=== PATIENT | male | born 1960 | race Caucasian/White ===

== ENCOUNTER 2018-05-04 12:23 | Day surgery (SDC) | payer MEDICAID ==
[2018-05-04 12:25] VITALS: BMI 31.5
--- NOTE | 2018-05-04 12:57 | C.PDOC ---
History Of Present Illness 57 year old male who is otherwise well, presents to the ED for evaluation of flank pain (left>right). Patient was evaluated in [facility] ED earlier this month and underwent a CT scan which showed that he had a stone. Patient returned to [place] ED yesterday for complaints of pain and received IV Fluids and pain medications for his symptoms. Case was discussed with Dr. Grewal, who recommended that patient undergo stent placement. Patient presents to this ED today with complaint of 3/10 flank pain. Patient is NPO today. He denies fever, chills, nausea, and vomiting. Time Seen by Provider: 05/04/18 12:33 Chief Complaint (Nursing): Male Genitourinary History Per: Patient History/Exam Limitations: no limitations Onset/Duration Of Symptoms: Days Current Symptoms Are (Timing): Still Present Pain Scale Rating Of: 3 Quality Of Discomfort: "Pain" Associated Symptoms: denies: Fever, Chills, Nausea, Vomiting Additional History Per: Patient Past Medical History Reviewed: Historical Data, Nursing Documentation, Vital Signs Vital Signs: Last Vital Signs Temp 98.1 F 05/04/18 12:28 Pulse 84 05/04/18 12:28 Resp 20 05/04/18 12:28 BP 143/86 05/04/18 12:28 Pulse Ox 98 05/04/18 13:24 - Medical History PMH: HTN, Hypercholesterolemia, Hyperlipidemia, Kidney Stones, Chronic Kidney Disease Denies: Asthma, Bronchitis, Cardia Arrhythmia, CHF, COPD, Emphysema, Mitral Valve Prolapse, Peripheral Edema, Pneumonia, Sleep Apnea Surgical History: Appendectomy (LAP AP 09/18/16) Denies: Coronary Stent, Pacemaker - [facility] Procedures DILATION OF RIGHT URETER WITH INTRALUMINAL DEVICE, ENDO (09/18/15) DILATION OF URETHRA, ENDO (09/18/15) FLUOROSCOPY OF RIGHT KIDNEY, URETER AND BLADDER (09/18/15) REMOVAL OF DRAINAGE DEVICE FROM BLADDER, EXTERNAL APPROACH (09/29/15) Family History: States: Unknown Family Hx - Social History Hx Alcohol Use: No Hx Substance Use: No - Immunization History Hx Tetanus Toxoid Vaccination: No Hx Influenza Vaccination: No Hx Pneumococcal Vaccination: No Review Of Systems Constitutional: Negative for: Fever, Chills Gastrointestinal: Negative for: Nausea, Vomiting Musculoskeletal: Positive for: Other (flank pain ) Physical Exam - Physical Exam Appears: Non-toxic, No Acute Distress Skin: Normal Color, Warm, Dry Head: Atraumatic, Normacephalic Eye(s): bilateral: Normal Inspection Oral Mucosa: Moist Neck: Supple Chest: Symmetrical, No Deformity, No Tenderness Cardiovascular: Rhythm Regular, No Murmur Respiratory: Normal Breath Sounds, No Rales, No Rhonchi, No Wheezing Gastrointestinal/Abdominal: Soft, No Tenderness, No Guarding, No Rebound Back: CVA Tenderness (bilateral, left>right) Extremity: Normal ROM, Capillary Refill (less than 2 seconds ) Neurological/Psych: Oriented x3, Normal Speech, Normal Cognition ED Course And Treatment O2 Sat by Pulse Oximetry: 98 (on RA) Pulse Ox Interpretation: Normal Medical Decision Making Medical Decision Making: Impression: 57 year old male with flank pain, Left>Right Progress: Patient's labwork from his [facility] visit were reviewed. Will not repeat labs. Patient given IV Fluids. Will instruct to go to Same Day Surgery. Disposition Discussed With Dr.: Chester Grewal Counseled Patient/Family Regarding: Diagnosis, Need For Followup - Disposition Disposition: HOSPITALIZED Disposition Time: 12:56 Condition: GUARDED Forms: [employer] ([employer]) - POA Present On Arrival: None - Clinical Impression Clinical Impression: Obstructive uropathy - Scribe Statement The provider has reviewed the documentation as recorded by the Scribe (Oneyda Garcia) Provider Attestation: All medical record entries made by the Scribe were at my direction and personally dictated by me. I have reviewed the chart and agree that the record accurately reflects my personal performance of the history, physical exam, medical decision making, and the department course for this patient. I have also personally directed, reviewed, and agree with the discharge instructions and disposition. Decision To Admit - Pt Status Changed To: Hospital Disposition Of: SDS- Endo,OR,Cath,IR - . Bed Request Type: Same Day Surgery Admitting Physician: Chester Grewal Patient Diagnosis: Obstructive uropathy
[2018-05-04 14:20] VITALS: RESP 16
[2018-05-04] MEDS ORDERED: HYDROmorphone 0.5 mg/0.5 ml ISec IVP PRN (16:48)
[2018-05-04] MEDS ORDERED: Iohexol 240 (50 ml) ONE (16:58)
[2018-05-04] MEDS ORDERED: cefTRIAXone IV 1 gm in Dextros 50 ML IVPB ONE (16:58)
[2018-05-04] MEDS ORDERED: Midazolam 2 MG/2 ML VIAL ONE (17:03)
[2018-05-04] MEDS ORDERED: Propofol 10 mg/ml Inj (20 ML) ONE ×2 (17:05→17:22)
[2018-05-04] MEDS ORDERED: Oxycodone/Acetaminophen 5/325 mg Tab PO PRN (17:06)
--- NOTE | 2018-05-04 17:55 | RAD ---
Date of service: 05/04/2018 HISTORY: LT KIDNEY STONE COMPARISON: No prior. FINDINGS: BOWEL: Normal. No obstruction. No free air. BONES: Normal. OTHER FINDINGS: Double-J stent catheter identified on the left. Contrast identified both within the collecting system is well as extravasated contrast IMPRESSION: Satisfactory position of double-J stent catheter.
[2018-05-04 19:21] VITALS: BP 169/89; PULSE 69; TEMP 97.4; O2SAT 100
--- NOTE | 2018-05-05 12:31 | RAD ---
Date of service: 05/04/2018 PROCEDURE: Intraoperative Fluoroscopy. HISTORY: LT KIDNEY STONE FINDINGS: Fluoroscopic assistance was provided Fluoroscopy time = 34.4 seconds. Radiation dose = 1.39 mGy -cm Please refer to the operative report from LAURA Molina, , MD [facility].
--- NOTE | 2018-05-05 17:41 | HP ---
This is Dr. Grewal dictating urology emergency admission. Mr. Andres is a very pleasant 57-year-old gentleman I know quite well. He had stones before. He is pleasant, but somewhat noncompliant. He has been coming to my office, has been going to the emergency room. I have been recommending treatment, but he elected to work. Today, he is having such severe pain, so admitting him as an emergency. I am going to put a stent and see the plan listed below. He has a known stone in his left ureter. He has been diagnosed at an outside institution. Other than [facility], he was in [facility]. We discussed outpatient treatments and shockwave lithotripsy, but at this point he is having such severe pain that we cannot wait. Previously, he had been on aspirin and we are just waiting for the aspirin to "wear out of the system." In the interim, the patient is having too much pain and to the ER. For now, we will bring him in as an emergency to put a stent and see below. PAST MEDICAL AND SURGICAL HISTORY: As listed in the chart. There is no other related changes. See the admission history and physical from the emergency room doctors. REVIEW OF SYSTEMS: As above. SOCIAL HISTORY: Essentially unremarkable. He works as a delivery driver/customer service. MEDICATIONS: See chart. ALLERGIES: SEE CHART. PHYSICAL EXAMINATION: GENERAL: Well-nourished male. He is currently resting comfortably on the stretcher. What he reports is that his pain has been anywhere from 2 to 10; two hours ago was a 10. Right now, it is a little bit less. VITAL SIGNS: Within normal limits, included in the chart. LUNGS: Clear. HEART: Normal S1 and S2. ABDOMEN: Overall soft, not grossly distended. GENITOURINARY: No real CVA tenderness. Normal male phallus. No testicular masses. LABORATORY DATA: See chart. DIAGNOSES: Urolithiasis, hematuria, hydronephrosis, severe flank pain, renal colic, all in the left side. The patient has more than one stone. PLAN: As follows. Today, we are going to do a cystoscopy and insert a stent. We are not touching the stone. We are just going to drain the kidney. This has been going on for a while. Actually, we are worried about infection at this point. 1. Antibiotic prophylaxis. 2. Cystoscopy. 3. Stent insertion. Further plans will follow. ADDENDUM: See the operative note. We were able to successfully place the stent, but with great difficulty. The stone was extremely impacted. Dakota Grewal MD
--- NOTE | 2018-05-06 07:00 | OP ---
PROCEDURE DATE: 05/04/2018 This is an emergency surgical procedure. PREOPERATIVE DIAGNOSES: Urolithiasis, hematuria, hydronephrosis, severe renal colic, multiple visits to the emergency room. POSTOPERATIVE DIAGNOSES: Urolithiasis, hematuria, hydronephrosis, severe renal colic, multiple visits to the emergency room. PROCEDURES: Cystoscopy, left retrograde pyelogram, and insertion of left double-J stent. COMPLICATIONS: There were no complications. There is noted extravasation. See the report from the chart. BLOOD LOSS: Less than 10 mL. At the termination of the procedure, the patient has had successful insertion of double-J stent in the left kidney. No complications. INDICATIONS: See the history and physical for the details. This is a very pleasant gentleman, who is here for the above procedure. I discussed with the patient the risks, benefits, and treatment alternatives of the procedure. At this point, we several times. We are waiting for the expert to out of the system. At this point, the patient is admitted as an emergency. DESCRIPTION OF PROCEDURE: After explaining risks, benefits, and alternatives of the procedure, the patient was brought to the table. Routine monitor was placed. Time-out was called to confirm the patient and positioning. The cystoscope was introduced via the urethra. was performed. We see a definite stone in the left kidney and may be difficult to see one in the ureter. Although, now we did multiple retrograde studies at the point of this dictation and I could definitely find where the stone is. It is an extremely impacted stone. The cystoscope via the urethra. The ureteral orifice identified. retrograde pyelogram was performed. Then, we tried to pass the wire up to the kidney and get stuck right where the stone is. We tried gently passing the wire. It would not go all the way. At this point, we put an open-ended over the wire. We tried wire technique open-ended and just trying to twist the wire. It still would not go up easily. At this point, I gently tried injecting contrast to further outline the ureter. There is small amount of extravasation noted. At this point, then I kept the wire in place and we are going to use the ureteroscope. I just gave one more effort with the open-ended and the wire technique and it slipped right in. Once we confirmed the positioning, I then re-injected through the open-ended contrast by confirming the kidney and that we were definitely in. I put the wire back in and put a double-J stent. The patient tolerated the procedure well without complications and at the termination of the procedure, had double-J stent in good location. I do want to mention that we can see the picture that we saved and put in the chart that there is purulent material draining when the open-ended is in. So at this point, the patient tolerated the procedure well without complications. Bladder is emptied. Cystoscope removed. Double-J stent in good location . Based on today's findings, I am not going to treat him until we know that we well. Give the ureter some time to heal and also we will discuss further plans further to follow. of the impacted stone. We were able to get the double-J stent in, but there was purulent material and this has been going on for a while. I provided antibiotics for the patient and I will discuss further plans. Dakota Grewal MD
== END 2018-05-04 19:25 | disposition home or self-care (01) ==
LOC: C.ER 12:23 → C.SDS 13:29
PROVIDERS: ATTEND Urology
DX: N13.2 Hydronephrosis with renal and ureteral calculous obstruction (principal); E78.00 Pure hypercholesterolemia, unspecified; I12.9 Hypertensive chronic kidney disease with stage 1 through stage 4 chronic kidney disease, or unspecified chronic kidney disease; N18.9 Chronic kidney disease, unspecified; Z87.442 Personal history of urinary calculi
CPT/HCPCS: 52332; 74018; 99285; C1725; C1758; C1769; J0696; Q9966

== ENCOUNTER 2018-05-13 08:03 | Day surgery (SDC) | payer MEDICAID ==
[2018-05-13 08:03] VITALS: BMI 31.5
[2018-05-13] MEDS ORDERED: Sodium Chloride 0.9% 1,000 ML IV ONE (08:44)
--- NOTE | 2018-05-13 08:47 | C.PDOC ---
History Of Present Illness 57 y/o male with history of left renal stone presents to ED sent by Dr. Grewal for stent removal and for evaluation urinary frequency, urinary urgency and hematuria for 1 week. Patient denies fever, abdominal pain, nausea, vomiting or any other complaints at this time. Time Seen by Provider: 05/13/18 08:21 Chief Complaint (Nursing): Male Genitourinary History Per: Patient History/Exam Limitations: no limitations Onset/Duration Of Symptoms: Days Current Symptoms Are (Timing): Still Present Associated Symptoms: Urinary Symptoms Past Medical History Reviewed: Historical Data, Nursing Documentation, Vital Signs Vital Signs: Last Vital Signs Temp 97.7 F 05/13/18 08:06 Pulse 80 05/13/18 08:06 Resp 18 05/13/18 08:06 BP 134/91 H 05/13/18 08:06 Pulse Ox 97 05/13/18 08:53 - Medical History PMH: HTN, Hypercholesterolemia, Hyperlipidemia, Kidney Stones, Chronic Kidney Disease Surgical History: Appendectomy (LAP AP 09/18/16) - [facility] Procedures DILATION OF RIGHT URETER WITH INTRALUMINAL DEVICE, ENDO (09/18/15) DILATION OF URETHRA, ENDO (09/18/15) FLUOROSCOPY OF RIGHT KIDNEY, URETER AND BLADDER (09/18/15) REMOVAL OF DRAINAGE DEVICE FROM BLADDER, EXTERNAL APPROACH (09/29/15) Family History: States: No Known Family Hx - Social History Hx Alcohol Use: No Hx Substance Use: No - Immunization History Hx Tetanus Toxoid Vaccination: No Hx Influenza Vaccination: No Hx Pneumococcal Vaccination: No Review Of Systems Constitutional: Negative for: Fever, Chills Gastrointestinal: Negative for: Nausea, Vomiting, Abdominal Pain Genitourinary: Positive for: Frequency, Hematuria. Negative for: Dysuria Musculoskeletal: Negative for: Back Pain Skin: Negative for: Rash Physical Exam - Physical Exam Appears: Non-toxic, Other (uncomfortable) Skin: Warm, Dry, No Rash Head: Atraumatic, Normacephalic Eye(s): bilateral: Normal Inspection Oral Mucosa: Moist Neck: Supple Cardiovascular: Rhythm Regular Respiratory: Normal Breath Sounds, No Rales, No Rhonchi, No Wheezing Gastrointestinal/Abdominal: Soft, No Tenderness, No Guarding, No Rebound Back: CVA Tenderness (mild), No Paraspinal Tenderness Neurological/Psych: Oriented x3, Normal Speech, Normal Motor, Normal Sensation ED Course And Treatment O2 Sat by Pulse Oximetry: 97 (RA) Pulse Ox Interpretation: Normal Medical Decision Making Medical Decision Making: discussed with Dr Collin Grewal, at 0842, to be admitted to his service. Disposition Discussed With : Chester Grewal Doctor Will See Patient In The: Hospital - Disposition Disposition: HOSPITALIZED Disposition Time: 08:46 Condition: GOOD Forms: [facility] ([facility]) - Clinical Impression Clinical Impression: Renal colic on left side - PA / WORD PROCESSING OPERATOR / Resident Statement MD/DO has reviewed & agrees with the documentation as recorded. - Scribe Statement The provider has reviewed the documentation as recorded by the Joaquinibcollin Mena All medical record entries made by the Constanza were at my direction and personally dictated by me. I have reviewed the chart and agree that the record accurately reflects my personal performance of the history, physical exam, medical decision making, and the department course for this patient. I have also personally directed, reviewed, and agree with the discharge instructions and disposition.
[2018-05-13] MEDS ORDERED: Sodium Chloride 0.9% 1,000 ML ONE (08:52)
[2018-05-13 09:04] LABS: BASO # 0.1 K/uL (0.0-0.2); BASO % 1.2 % (0.0-2.0); EOS # 0.7 K/uL (0.0-0.7); EOS % 8.1 % (0.0-4.0); HEMOGLOBIN 14.8 g/dL (12.0-18.0); LYMPH # 2.6 K/uL (1.0-4.3); MEAN CORPUSCULAR HEMOGLOBIN 28.7 pg (27.0-31.0); MEAN CORPUSCULAR HGB CONC 34.4 g/dL (33.0-37.0); MEAN PLATELET VOLUME 8.8 fL (7.2-11.7); MONO # 0.9 K/uL (0.0-0.8); MONO % 11.5 % (0.0-10.0); NEUT # 3.9 K/uL (1.8-7.0); NEUT % 47.2 % (50.0-75.0); RBC 5.15 Mil/uL (4.40-5.90); RED CELL DISTRIBUTION WIDTH 14.1 % (11.5-14.5); WHITE BLOOD COUNT 8.2 K/uL (4.8-10.8)
[2018-05-13 09:07] LABS: MEAN CELL VOLUME 83.3 fL (80.0-94.0)
[2018-05-13 09:17] LABS: ALB/GLOB RATIO 1.3 (1.0-2.1); ALT/SGPT 33 U/L (21-72); AST/SGOT 19 U/L (17-59); BLOOD UREA NITROGEN 9 mg/dL (9-20); CALCIUM 9.2 mg/dl (8.6-10.4); GFR AFRICAN-AMERICAN > 60; GFR NON-AFRICAN AMERICAN > 60
[2018-05-13] MEDS ORDERED: Midazolam 2 MG/2 ML VIAL ONE (12:08)
[2018-05-13] MEDS ORDERED: Propofol 10 mg/ml Inj (20 ML) ONE (12:08)
[2018-05-13] MEDS ORDERED: Oxycodone/Acetaminophen 5/325 mg Tab PO PRN (12:10)
[2018-05-13] MEDS ORDERED: Iohexol 240 (50 ml) ONE (12:10)
--- NOTE | 2018-05-13 13:49 | RAD ---
Date of service: 05/13/2018 HISTORY: LT KIDNEY STONE COMPARISON: Abdominal radiographs dated 05/04/2018. FINDINGS: BOWEL: Normal. No obstruction. No free air. BONES: Normal. OTHER FINDINGS: 1.1 cm calcification projecting over the left flank. Left double-J ureteral stent. IMPRESSION: Re- demonstration of calcification projecting over the left flank. Indwelling left double-J ureteral stent.
[2018-05-13] MEDS: HYDROmorphone 0.5 mg/0.5 ml ISec IVP PRN ×2 (14:07→14:22)
--- NOTE | 2018-05-13 17:49 | RAD ---
Date of service: 05/13/2018 PROCEDURE: Intraoperative Fluoroscopy. HISTORY: LEFT KIDNEY STONE FINDINGS: Fluoroscopic assistance was provided for retrograde study. Please refer to the operative report from LAURA Molina, , MD [facility]. Total fluoroscopic time (continuous mode) utilized during the procedure 125.8 (seconds). Total exam DLP: 3.27 (mGy)
[2018-05-13 18:09] VITALS: BP 137/74; PULSE 80; RESP 20; TEMP 97.8; O2SAT 100
--- NOTE | 2018-05-26 17:36 | HP ---
Copied To: Dakota Grewal MD Attending MD: Dakota Grewal MD UROLOGY ADMISSION REASON FOR ADMISSION: Emergency admission for ureteroscopy and stent insertion. HISTORY OF PRESENT ILLNESS: Mr. Andres is a very gentleman who has severe urolithiasis and renal colic and obstructing stone. He has undergone multiple treatments here today. He is here for cystoscopy, ureteroscopy and insertion of stent. PAST MEDICAL HISTORY AND SURGICAL HISTORY: As listed. No history of an VA or CVA. REVIEW OF SYSTEMS: As listed above, noncontributory. 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 Social history unremarkable. PHYSICAL EXAMINATION: GENERAL: Well-nourished male in no apparent distress. VITAL SIGNS: Within normal limits and included in the chart. ABDOMEN: Overall soft, nontender. No flank masses appreciated. GENITALIA: Normal male phallus without discharge. No testicular masses. RECTAL: g prostate, soft and smooth. LABORATORY DATA: See chart. DIAGNOSES: Severe urolithiasis, hydronephrosis and flank pain. PLAN: Today as follows: 1. Cystoscopy. 2. Ureteroscopy. 3. Insertion of a double-J stent. 4. Further plans will follow. He has been under treatment and we are trying to read the body of the stone. Initially he presented with a severely obstructive stone. You can see the body of the note for that. We placed a stent and we then brought in stone center. We are working on trying to complete the treatment as quickly as possible. Dakota Grewal MD
--- NOTE | 2018-05-27 07:46 | OP ---
Copied To: Dakota Grewal MD Attending MD: Dakota Grewal MD PROCEDURE DATE: 05/13/2018 PREOPERATIVE DIAGNOSES: Urolithiasis, hematuria, left renal colic, left hydronephrosis, severe left stone burden. POSTOPERATIVE DIAGNOSES: Urolithiasis, hematuria, left renal colic, left hydronephrosis, severe left stone burden. PROCEDURES: Cystoscopy, ureteroscopy, insertion of a double-J stent. SURGEON: Dakota Gerwal MD. COMPLICATIONS: There were no complications involving the left side. INDICATIONS: See history and physical for further details. A very pleasant gentleman who presented with severe left flank pain. We see multiple previous notes. We initially placed a stent with some great difficulty. We had put a stent in. We were able to get one in. We then brought the patient to the [facility]. At this point, there is recurrent . UROLOGY OPERATIVE FINDINGS: 1. Normal anterior urethra. No strictures. 2. The verumontanum is moderately visually occlusive, about 2 to 3 cm. 3. Hydronephrosis noted. 4. Double-J stent inserted. BLOOD LOSS: Less than 10 mL. PROCEDURE IN DETAIL: After obtaining informed consent, the patient was placed on the table. Routine monitoring was placed. Time-out was called. We confirmed patient and positioning. We introduced the cystoscope via urethra. Normal anterior urethra. No strictures. The verumontanum moderately visually occlusive. The ureteral orifice was identified. Retrograde pyelogram was reported. A ureteroscopy was performed. We inserted a double-J stent. Overall, the patient tolerated the procedure without complication. ADDENDUM: As a difficult balance because the patient has been under treatment, which I figure out best next step for the patient, but today we just wanted to drain the kidney as quickly as possible given his pain and discomfort. Dakota Grewal MD
== END 2018-05-13 17:30 | disposition home or self-care (01) ==
LOC: C.ER 08:03 → C.SDS 09:02
PROVIDERS: ATTEND Urology
DX: N13.2 Hydronephrosis with renal and ureteral calculous obstruction (principal); I12.9 Hypertensive chronic kidney disease with stage 1 through stage 4 chronic kidney disease, or unspecified chronic kidney disease; N18.9 Chronic kidney disease, unspecified
CPT/HCPCS: 52332; 74018; 80053; 85025; 99285; C1725; C1758; C1769; J1170

== ENCOUNTER 2018-06-01 11:14 | Day surgery (SDC) | payer MEDICAID ==
[2018-06-01 11:27] VITALS: BMI 31.1
[2018-06-01] MEDS ORDERED: Sodium Chloride 0.9% 1,000 ML IV ONE ×2 (11:42→12:35)
--- NOTE | 2018-06-01 11:42 | C.PDOC ---
History Of Present Illness 57 y/o male with history of Hypercholesterolemia, Hyperlipidemia, Kidney Stones , Chronic Kidney Disease, and appendectomy, s/p Left Ureteral Stent on 05/18 presents [address] ED [address] Dr. Yosvany grewal for possible ureteral stent removal. Patient has been NPO since last night and reports mild suprapubic pain, denies dysuria, back pain, nausea, vomiting or any other complaints at this time. SP L URETERAL STENT 05/18 Hypercholesterolemia, Hyperlipidemia, Kidney Stones, Chronic Kidney Disease, and appendectomy Time Seen by Provider: 06/01/18 11:28 Chief Complaint (Nursing): Male Genitourinary History Per: Patient History/Exam Limitations: no limitations Onset/Duration Of Symptoms: Days Current Symptoms Are (Timing): Still Present Quality Of Discomfort: "Pain" Past Medical History Reviewed: Historical Data, Nursing Documentation, Vital Signs Vital Signs: Last Vital Signs Temp 97.7 F 06/01/18 11:27 Pulse 99 H 06/01/18 11:27 Resp 18 06/01/18 11:27 BP 155/90 H 06/01/18 11:27 Pulse Ox 98 06/01/18 11:49 - Medical History PMH: Gall Bladder Disease (cholelithiasis), HTN, Hypercholesterolemia, Hyperlipidemia, Kidney Stones, Chronic Kidney Disease Surgical History: Appendectomy (lap 09/18/16) - [facility] Procedures DILATION OF RIGHT URETER WITH INTRALUMINAL DEVICE, ENDO (09/18/15) DILATION OF URETHRA, ENDO (09/18/15) FLUOROSCOPY OF RIGHT KIDNEY, URETER AND BLADDER (09/18/15) REMOVAL OF DRAINAGE DEVICE FROM BLADDER, EXTERNAL APPROACH (09/29/15) Family History: States: No Known Family Hx - Social History Hx Alcohol Use: No Hx Substance Use: No - Immunization History Hx Tetanus Toxoid Vaccination: No Hx Influenza Vaccination: No Hx Pneumococcal Vaccination: No Review Of Systems Constitutional: Negative for: Fever, Chills Gastrointestinal: Positive for: Abdominal Pain. Negative for: Nausea, Vomiting , Diarrhea Genitourinary: Negative for: Dysuria, Hematuria Musculoskeletal: Negative for: Back Pain Skin: Negative for: Rash Physical Exam - Physical Exam Appears: Non-toxic, No Acute Distress Skin: Warm, Dry, No Rash Head: Atraumatic, Normacephalic Eye(s): bilateral: Normal Inspection Oral Mucosa: Moist Neck: Supple Cardiovascular: Rhythm Regular Respiratory: Normal Breath Sounds, No Rales, No Rhonchi, No Wheezing Gastrointestinal/Abdominal: Soft, No Tenderness, No Guarding, No Rebound Back: No CVA Tenderness Extremity: Normal ROM, Capillary Refill (<2 seconds) Neurological/Psych: Oriented x3, Normal Speech, Normal Cognition ED Course And Treatment - Laboratory Results Result Diagrams: 06/01/18 12:11 06/01/18 12:11 ECG: Interpreted By Me, Viewed By Me ECG Rhythm: Sinus Rhythm ECG Interpretation: No Acute Changes Rate From EC O2 Sat by Pulse Oximetry: 98 (RA) Pulse Ox Interpretation: Normal Progress - Re-Evaluation Re-evaluation Note: 06/01/18 11:40 D/W DR Yosvany GREWAL ADMIT PT FOR SDS FOR STENT REMOVAL - Data Reviewed Data Reviewed: Old records Disposition Counseled Patient/Family Regarding: Diagnosis - Disposition Disposition: HOSPITALIZED Disposition Time: 11:42 Condition: STABLE - POA Present On Arrival: None - Clinical Impression Clinical Impression: Retained ureteral stent - Scribe Statement The provider has reviewed the documentation as recorded by the Scribyosvany Mena All medical record entries made by the Scribe were at my direction and personally dictated by me. I have reviewed the chart and agree that the record accurately reflects my personal performance of the history, physical exam, medical decision making, and the department course for this patient. I have also personally directed, reviewed, and agree with the discharge instructions and disposition. Decision To Admit - Pt Status Changed To: Hospital Disposition Of: SDS- Endo,OR,Cath,IR - . Bed Request Type: Same Day Surgery Admitting Physician: Chester Grewal Patient Diagnosis: Retained ureteral stent
[2018-06-01 12:17] LABS: BASO # 0.1 K/uL (0.0-0.2); BASO % 1.4 % (0.0-2.0); EOS % 10.6 % (0.0-4.0); HEMOGLOBIN 14.6 g/dL (12.0-18.0); LYMPH # 2.6 K/uL (1.0-4.3); LYMPH % 27.5 % (20.0-40.0); MEAN CELL VOLUME 83.9 fL (80.0-94.0); MEAN CORPUSCULAR HEMOGLOBIN 28.7 pg (27.0-31.0); MEAN CORPUSCULAR HGB CONC 34.2 g/dL (33.0-37.0); MEAN PLATELET VOLUME 8.8 fL (7.2-11.7); MONO % 10.9 % (0.0-10.0); NEUT # 4.8 K/uL (1.8-7.0); NEUT % 49.6 % (50.0-75.0); RBC 5.1 Mil/uL (4.40-5.90); RED CELL DISTRIBUTION WIDTH 14.6 % (11.5-14.5); WHITE BLOOD COUNT 9.6 K/uL (4.8-10.8)
[2018-06-01 12:25] LABS: PROTHROMBIN TIME 11.2 SECONDS (9.7-12.2)
[2018-06-01 12:28] LABS: BLOOD UREA NITROGEN 9 mg/dL (9-20); CALCIUM 9.7 mg/dl (8.6-10.4); GFR NON-AFRICAN AMERICAN > 60
[2018-06-01 12:36] LABS: SQUAMOUS EPITHIAL 1 /hpf (0-5); URINE BACTERIA RARE (<OCC); URINE BILIRUBIN NEGATIVE (NEGATIVE); URINE BLOOD 3+ (NEGATIVE); URINE CLARITY Hazy (Clear); URINE COLOR Yellow (YELLOW); URINE GLUCOSE (UA) NORMAL (Normal); URINE LEUKOCYTE ESTERASE 3+ Leu/uL (Negative); URINE PROTEIN 2+ mg/dL (NEGATIVE); URINE UROBILINOGEN NORMAL mg/dL (0.2-1.0)
--- NOTE | 2018-06-01 13:28 | RAD ---
Date of service: 06/01/2018 HISTORY: Pre Op COMPARISON: 08/24/2015 TECHNIQUE: Chest PA and lateral FINDINGS: LUNGS: No interval infiltrate seen. PLEURA: No significant pleural effusion identified. No pneumothorax apparent.Trace right apical pleural thickening -similar in appearance is suspect. CARDIOVASCULAR: Top-normal heart size no pulmonary venous congestion appreciated OSSEOUS STRUCTURES: No significant abnormalities. VISUALIZED UPPER ABDOMEN: Normal. OTHER FINDINGS: None. IMPRESSION: No interval cardiopulmonary pathology noted
[2018-06-01] MEDS ORDERED: HYDROmorphone 0.5 mg/0.5 ml ISec IVP PRN (16:06)
[2018-06-01 16:47] VITALS: O2SAT 100
[2018-06-01 17:50] VITALS: BP 134/86; PULSE 65; RESP 20; TEMP 97.8
--- NOTE | 2018-06-02 12:37 | CARD ---
APPROVED REPORT Date of service: 06/01/2018 EKG Measurement Heart [id number] ME [id number] <Conclusion> Normal sinus rhythm Normal ECG
--- NOTE | 2018-06-19 00:03 | OP ---
Copied To: Dakota Grewal MD Attending MD: Dakota Grewal MD PROCEDURE DATE: 06/01/2018 PREOPERATIVE DIAGNOSES: Urolithiasis, hematuria, hydronephrosis, flank pain. POSTOPERATIVE DIAGNOSES: Urolithiasis, hematuria, hydronephrosis, flank pain. PROCEDURES: Cystoscopy, removal of a left double-J stent. ESTIMATED BLOOD LOSS: Less than 10 mL. COMPLICATIONS: There were no complications. INDICATIONS: See history and physical for the details. Very pleasant gentleman who is now here for the above procedure. We just want to remove the stent. The patient may have a stone fragment that pippa up in the kidney, which needs close followup. I explained to the patient we need to make sure he is stone free or we would not have accomplished much and he will need close followup. He is a very pleasant, but generally he does not come back unless he is having a specific issue. We have been discussing the options with the patient. He to remove the stent. We will try to encourage him to come back even if he is not having pain to see if we can complete the treatment and make sure that we have got rid the body of the stone. After obtaining informed consent, the patient was placed on the table. Routine monitoring was placed. Time-out was called. We confirmed the patient and positioning. We introduced the cystoscope via urethra. Anterior urethra normal. No strictures. The verumontanum was moderately visually occlusive by 2 to 3 cm. At this point, we identified the stent . The patient tolerated the above without complication. Dakota Grewal MD
--- NOTE | 2018-06-19 13:42 | HP ---
Copied To: Dakota Grewal MD Attending MD: Dakota Grewal MD REASON FOR ADMISSION: To remove his left double-J stent. HISTORY OF PRESENT ILLNESS: Mr. Andres is a very pleasant gentleman. Through many previous note, we brought him to various places for treatment of stones, sometimes as an emergency. See those notes. Today, he is being brought into [facility] for his stent removal also as an urgent or relative emergency. Very pleasant gentleman who has tremendous stone burden and we have been working through the many previous notes. Today, we are just planning to remove the stent and then further plans will follow. At this point, he is stone free. There is no ureteral stones adjacent to the stent. There may be some stone fragment up in the kidney. We discussed option there. At this point, he wants to remove the stent and that is what he is being admitted for. PAST MEDICAL HISTORY: As listed on the chart, otherwise unremarkable from urology standpoint. PAST SURGICAL HISTORY: As listed on the chart, otherwise unremarkable from urology standpoint. REVIEW OF SYSTEMS: Listed above, otherwise noncontributory. MEDICATIONS: See the chart. ALLERGIES: SEE THE CHART. All these are noted on the chart. Though the labs to be drawn. DIAGNOSES: Urolithiasis, hematuria, hydronephrosis, all present on the left side. PLAN: The plan for today is follows: 1. A cystoscopy. 2. Removal of left double-J stent and then further plans will follow. discussed with the patient and his friend. I explained to the patient he does need followup and he has to follow those fragments that are up in the kidney, but we just want to remove the stent at this point. Dakota Grewal MD
== END 2018-06-01 17:50 | disposition home or self-care (01) ==
LOC: C.ER 11:14 → C.SDS 12:06
PROVIDERS: ATTEND Urology
DX: Z46.6 Encounter for fitting and adjustment of urinary device (principal); N20.0 Calculus of kidney
CPT/HCPCS: 36415; 52310; 71046; 80048; 81001; 85025; 85610; 85730; 86850; 86900; 93005; 99285; J0696; J7030